=== PATIENT | female | born 1965 | race African-American/Black ===

== ENCOUNTER 2021-05-17 14:50 | Emergency (ER) | payer MEDICAID ==
[~2021-05-17] VITALS: Ht 160 cm; Wt 92.1 kg
[~2021-05-17 14:50] MED LIST: AML5T PO
[2021-05-17] MEDS ORDERED: SODIUM CHLORIDE 0.9% 1,000 ML IV ONE (15:30)
[2021-05-17 16:01] LABS: Basophils # (auto) 0 10 ^3/uL (0-0.2); Eosinophils # (auto) 0 10 ^3/uL (0-0.8); Hemoglobin 13.7 g/dL (12.2-16.2); Lymphocytes # (auto) 0.8 10 ^3/uL (0.4-5.4); Monocytes # (auto) 0.3 10 ^3/uL (0-1.3); Neutrophils # (auto) 2.1 10 ^3/uL (1.6-8.6); Red Cell Distribution Width 13.4 % (11.8-14.3); White Blood Cell 3.3 10^3/uL (4.4-10.8)
[2021-05-17 16:05] LABS: Basophils % (auto) 1.4 % (0.0-2.0); Eosinophils % (auto) 0.7 % (0.0-7.0); Hematocrit 41.8 % (36.0-46.0); Mean Corpuscular Hemoglobin 27.2 pg (28.0-32.0); Mean Corpuscular Hgb Conc. 32.8 g/dL (32.0-36.0); Monocytes % (auto) 9.5 % (0.0-12.0); Neutrophils % (auto) 63.4 % (37.0-80.0); Nucleated Red Blood Cells % 0.2 %; Red Blood Cells 5.04 10^6/uL (4.0-5.20)
[2021-05-17 16:26] LABS: Albumin 3.6 g/dL (3.4-5.0); BUN/Creatinine Ratio 12.4; Calcium 9.6 mg/dL (8.5-10.1); Magnesium 2.5 mg/dL (1.6-2.6); Potassium 3.9 mmol/L (3.5-5.1)
[2021-05-17 16:29] LABS: Bilirubin, Total 0.5 mg/dL (0.2-1.0); Total Protein 9.1 g/dL (6.4-8.2)
[2021-05-17 16:47] LABS: INR 1.06 (0.9-1.15); Partial Thromboplastin Time 29.3 sec (23.6-33.0)
[2021-05-17] MEDS ORDERED: IOHEXOL 350 MG/ML 100ML IJ ONE (18:17)
[2021-05-17 23:10] VITALS: BP 136/101
== END 2021-05-18 02:41 | disposition home or self-care (01) ==
LOC: ER 14:50
DX: R06.02 Shortness of breath (principal); R79.1 Abnormal coagulation profile; I10 Essential (primary) hypertension; Z86.73 Personal history of transient ischemic attack (TIA), and cerebral infarction without residual deficits; Z20.822 Contact with and (suspected) exposure to COVID-19
CPT/HCPCS: 36415; 71046; 71275; 80053; 83735; 83880; 84443; 85025; 85379; 85610; 85730; 87426; 93005

== ENCOUNTER 2021-07-01 01:17 | Emergency (ER) | payer MEDICAID ==
[~2021-07-01] VITALS: Ht 160 cm; Wt 93.0 kg
[2021-07-01 02:20] LABS: Basophils # (auto) 0.1 10 ^3/uL (0-0.2); Basophils % (auto) 1.1 % (0.0-2.0); Eosinophils # (auto) 0.6 10 ^3/uL (0-0.8); Eosinophils % (auto) 11.8 % (0.0-7.0); Hematocrit 42.4 % (36.0-46.0); Lymphocytes # (auto) 1.3 10 ^3/uL (0.4-5.4); Lymphocytes % (auto) 24.3 % (10.0-50.0); Mean Corpuscular Hemoglobin 28.3 pg (28.0-32.0); Mean Corpuscular Hgb Conc. 33.2 g/dL (32.0-36.0); Mean Corpuscular Volume 85.5 fL (80.0-100.0); Monocytes # (auto) 0.4 10 ^3/uL (0-1.3); Monocytes % (auto) 7.6 % (0.0-12.0); Neutrophils # (auto) 2.9 10 ^3/uL (1.6-8.6); Neutrophils % (auto) 55.2 % (37.0-80.0); Nucleated Red Blood Cells % 0.1 %; Red Blood Cells 4.96 10^6/uL (4.0-5.20); Red Cell Distribution Width 14.7 % (11.8-14.3); White Blood Cell 5.3 10^3/uL (4.4-10.8)
[2021-07-01 02:37] LABS: Albumin 3.9 g/dL (3.4-5.0); BUN/Creatinine Ratio 13.8; Calcium 9.6 mg/dL (8.5-10.1)
[2021-07-01 02:40] LABS: Bilirubin, Total 0.3 mg/dL (0.2-1.0); Total Protein 8.5 g/dL (6.4-8.2)
[2021-07-01 07:25] VITALS: BP 132/94
[2021-07-01] MEDS ORDERED: HYDROcodone-ACET 5/325MG TAB PO ONE (07:30)
[2021-07-01] MEDS ORDERED: amLODIPine BESYLATE 5 MG TAB PO ONE (07:30)
[2021-07-01 07:51] LABS: Urine Bacteria FEW /hpf (None Seen); Urine Blood Negative /uL (Negative); Urine Specific Gravity 1.006 (1.001-1.035); Urine WBC 21 /hpf (0 - 5)
== END 2021-07-01 09:12 | disposition home or self-care (01) ==
LOC: ER 01:17
DX: N39.0 Urinary tract infection, site not specified (principal); R51.9 Headache, unspecified; I10 Essential (primary) hypertension; Z88.5 Allergy status to narcotic agent; Z88.6 Allergy status to analgesic agent; Z79.899 Other long term (current) drug therapy; Z86.73 Personal history of transient ischemic attack (TIA), and cerebral infarction without residual deficits; Z98.890 Other specified postprocedural states
CPT/HCPCS: 36415; 70450; 80053; 81001; 85025

== ENCOUNTER 2021-09-29 09:41 | Inpatient (IN) | payer MEDICAID ==
[~2021-09-29] VITALS: Ht 160 cm; Wt 95.6 kg
[2021-09-29 10:50] LABS: Basophils # (auto) 0.1 10 ^3/uL (0-0.2); Basophils % (auto) 1.3 % (0.0-2.0); Eosinophils # (auto) 0.2 10 ^3/uL (0-0.8); Eosinophils % (auto) 3.9 % (0.0-7.0); Hematocrit 43.7 % (36.0-46.0); Hemoglobin 14.2 g/dL (12.2-16.2); Lymphocytes # (auto) 1.3 10 ^3/uL (0.4-5.4); Mean Corpuscular Hgb Conc. 32.5 g/dL (32.0-36.0); Monocytes # (auto) 0.3 10 ^3/uL (0-1.3); Monocytes % (auto) 6.8 % (0.0-12.0); Neutrophils # (auto) 2.9 10 ^3/uL (1.6-8.6); Red Blood Cells 5.08 10^6/uL (4.0-5.20); Red Cell Distribution Width 13.1 % (11.8-14.3); White Blood Cell 4.8 10^3/uL (4.4-10.8)
[2021-09-29 11:06] LABS: Calcium 9.7 mg/dL (8.5-10.1); Potassium 4.5 mmol/L (3.5-5.1)
[2021-09-29 11:14] LABS: BUN/Creatinine Ratio 13.3; Bilirubin, Total 0.2 mg/dL (0.2-1.0); Total Protein 8.4 g/dL (6.4-8.2)
[2021-09-29 14:00] LABS: Urine Bacteria FEW /hpf (None Seen); Urine Blood Negative /uL (Negative); Urine Specific Gravity 1.008 (1.001-1.035); Urine WBC 12 /hpf (0 - 5)
[2021-09-29] MEDS ORDERED: NITROGLYCERIN 0.4 MG SL TAB SL ONE (18:15)
[2021-09-30] MEDS ORDERED: DOCUSATE SOD 100 MG CAP PO PRN (03:45)
[2021-09-30] MEDS ORDERED: ACETAMINOPHEN 325 MG TAB PO PRN (03:45)
[2021-09-30] MEDS ORDERED: MORPHINE SULFATE 4 MG/ML SYR/VIAL IV PRN (03:45)
[2021-09-30] MEDS ORDERED: ONDANSETRON HCL 4 MG/2 ML VIAL IV PRN (03:45)
[2021-09-30] MEDS ORDERED: HYDROcodone-ACET 5/325MG TAB PO PRN (03:45)
[2021-09-30] MEDS ORDERED: MORPHINE SULFATE INJECTION 2 MG/ML SYRG IV PRN (04:45)
[2021-09-30] MEDS ORDERED: NITROGLYCERIN 0.4 MG SL TAB SL PRN (04:45)
[2021-09-30] MEDS: METOPROLOL TARTRATE 25 MG TAB PO SCH ×2 (10:00→22:38)
[2021-09-30] MEDS: FAMOTIDINE (10MG/ML) 2ML VL IV SCH (10:49)
[2021-09-30] MEDS: CLOPIDOGREL BISULFATE 75 MG TAB PO SCH (10:50)
[2021-09-30 11:31] LABS: Basophils # (auto) 0.1 10 ^3/uL (0-0.2); Basophils % (auto) 1.3 % (0.0-2.0); Eosinophils # (auto) 0.2 10 ^3/uL (0-0.8); Hematocrit 42.6 % (36.0-46.0); Hemoglobin 13.9 g/dL (12.2-16.2); Lymphocytes # (auto) 1.3 10 ^3/uL (0.4-5.4); Lymphocytes % (auto) 24.8 % (10.0-50.0); Mean Corpuscular Hgb Conc. 32.7 g/dL (32.0-36.0); Mean Corpuscular Volume 85.5 fL (80.0-100.0); Monocytes # (auto) 0.6 10 ^3/uL (0-1.3); Neutrophils # (auto) 3.1 10 ^3/uL (1.6-8.6); Neutrophils % (auto) 59.9 % (37.0-80.0); Nucleated Red Blood Cells % 0.1 %; Red Blood Cells 4.98 10^6/uL (4.0-5.20); Red Cell Distribution Width 13.1 % (11.8-14.3); White Blood Cell 5.1 10^3/uL (4.4-10.8)
[2021-09-30 11:46] LABS: Albumin 3.8 g/dL (3.4-5.0); Calcium 9.8 mg/dL (8.5-10.1); Potassium 3.9 mmol/L (3.5-5.1)
[2021-09-30 11:51] LABS: BUN/Creatinine Ratio 14.7; Bilirubin, Total 0.3 mg/dL (0.2-1.0); Total Protein 8.2 g/dL (6.4-8.2)
[2021-09-30 19:10] LABS: Cholesterol 192 mg/dL (< 200); HDL Cholesterol 55 mg/dL (40-59); LDL Cholesterol 119 mg/dL (< 100); Triglycerides 56 mg/dL (< 150)
[2021-09-30] MEDS: ATORVASTATIN 20 MG TAB PO SCH (22:38)
[2021-09-30 23:28] VITALS: BP 127/85
[2021-09-30] MEDS ORDERED: PRAM0.12 PO (23:36)
[2021-10-01 05:00] VITALS: BP 109/71
[2021-10-01 05:47] LABS: Basophils # (auto) 0.1 10 ^3/uL (0-0.2); Basophils % (auto) 1.4 % (0.0-2.0); Eosinophils # (auto) 0.3 10 ^3/uL (0-0.8); Eosinophils % (auto) 6.7 % (0.0-7.0); Hematocrit 41.5 % (36.0-46.0); Hemoglobin 13.4 g/dL (12.2-16.2); Lymphocytes # (auto) 1.8 10 ^3/uL (0.4-5.4); Lymphocytes % (auto) 41.1 % (10.0-50.0); Mean Corpuscular Hemoglobin 27.8 pg (28.0-32.0); Mean Corpuscular Hgb Conc. 32.4 g/dL (32.0-36.0); Monocytes # (auto) 0.4 10 ^3/uL (0-1.3); Monocytes % (auto) 9.6 % (0.0-12.0); Neutrophils # (auto) 1.8 10 ^3/uL (1.6-8.6); Neutrophils % (auto) 41.2 % (37.0-80.0); Nucleated Red Blood Cells % 0.3 %; Red Blood Cells 4.83 10^6/uL (4.0-5.20); Red Cell Distribution Width 12.9 % (11.8-14.3); White Blood Cell 4.5 10^3/uL (4.4-10.8)
[2021-10-01 06:04] LABS: Albumin 3.3 g/dL (3.4-5.0); Calcium 9.4 mg/dL (8.5-10.1); Potassium 4.3 mmol/L (3.5-5.1)
[2021-10-01 06:06] LABS: BUN/Creatinine Ratio 16.3
[2021-10-01 06:08] LABS: Bilirubin, Total 0.4 mg/dL (0.2-1.0); Total Protein 7.6 g/dL (6.4-8.2)
[2021-10-01 08:00] VITALS: BP 117/85
[2021-10-01 09:00] VITALS: BP 117/85
[2021-10-01] MEDS: CLOPIDOGREL BISULFATE 75 MG TAB PO SCH (11:21)
[2021-10-01] MEDS: amLODIPine BESYLATE 5 MG TAB PO SCH ×2 (11:21→22:04)
[2021-10-01] MEDS: FAMOTIDINE (10MG/ML) 2ML VL IV SCH (11:22)
[2021-10-01] MEDS: METOPROLOL TARTRATE 25 MG TAB PO SCH ×2 (11:22→22:02)
[2021-10-01 13:00] VITALS: BP 126/88
[2021-10-01 16:41] VITALS: BP 106/74
[2021-10-01 22:00] VITALS: BP 108/73
[2021-10-01] MEDS: PRAMIPEXOLE DIHYDROCHLORIDE MO 0.25 MG TAB PO SCH (22:03)
[2021-10-01] MEDS: ATORVASTATIN 20 MG TAB PO SCH (22:03)
[2021-10-02] VITALS (7 sets, daily range): BP systolic 107–134; BP diastolic 73–91
[2021-10-02] MEDS: amLODIPine BESYLATE 5 MG TAB PO SCH ×2 (09:28→22:16)
[2021-10-02] MEDS: CLOPIDOGREL BISULFATE 75 MG TAB PO SCH (09:29)
[2021-10-02] MEDS: FAMOTIDINE (10MG/ML) 2ML VL IV SCH (09:29)
[2021-10-02] MEDS: METOPROLOL TARTRATE 25 MG TAB PO SCH ×2 (09:29→22:15)
[2021-10-02] MEDS ORDERED: ADENOSINE 80 MG in GIVE UN-DILUTED 0 ML IV STA (12:56)
[2021-10-02] MEDS: ATORVASTATIN 20 MG TAB PO SCH (22:15)
[2021-10-02] MEDS: PRAMIPEXOLE DIHYDROCHLORIDE MO 0.25 MG TAB PO SCH (22:15)
[2021-10-03] VITALS: BP 116/85
[2021-10-03 07:45] VITALS: BP 97/62
[2021-10-03 09:00] VITALS: BP 97/62
[2021-10-03] MEDS: METOPROLOL TARTRATE 25 MG TAB PO SCH (10:00)
[2021-10-03] MEDS: amLODIPine BESYLATE 5 MG TAB PO SCH (10:00)
[2021-10-03] MEDS: CLOPIDOGREL BISULFATE 75 MG TAB PO SCH (10:11)
[2021-10-03] MEDS: FAMOTIDINE (10MG/ML) 2ML VL IV SCH (10:11)
[2021-10-03 13:00] VITALS: BP 115/68
[2021-10-03] MEDS ORDERED: CEPH-509 PO (13:39)
[2021-10-03] MEDS ORDERED: AMOX500C2 PO (14:19)
[2021-10-03 14:29] VITALS: BP 115/68
== END 2021-10-03 18:05 | disposition home or self-care (01) | DRG 203 ==
LOC: ER 09:41 → TELE 09-30 04:43 → TELE-CENTR 09-30 21:50
PROVIDERS: ADMIT Nurse Practitioner Family; ATTEND Internal Medicine
DX: R07.9 Chest pain, unspecified (principal); E66.9 Obesity, unspecified; F41.9 Anxiety disorder, unspecified; I10 Essential (primary) hypertension; R51.9 Headache, unspecified; E78.5 Hyperlipidemia, unspecified; Z20.822 Contact with and (suspected) exposure to COVID-19; Z82.3 Family history of stroke; Z82.49 Family history of ischemic heart disease and other diseases of the circulatory system; Z82.62 Family history of osteoporosis; Z86.73 Personal history of transient ischemic attack (TIA), and cerebral infarction without residual deficits; Z88.6 Allergy status to analgesic agent; Z88.5 Allergy status to narcotic agent; Z68.37 Body mass index [BMI] 37.0-37.9, adult
CPT/HCPCS: 36415; 70450; 71046; 78452; 80053; 80061; 81001; 84484; 85025; 87426; 93005; 93017; 93306; 96374; G0378; J0153; J3490

== ENCOUNTER 2022-09-29 12:23 | Emergency (ER) | payer MEDICAID ==
[~2022-09-29] VITALS: Ht 160 cm; Wt 97.5 kg
[~2022-09-29 12:23] MED LIST changes: +AMOX500C2 PO; +PRAM0.12 PO
[2022-09-29] MEDS ORDERED: cloNIDine HCL 0.1 MG TAB PO ONE (12:45)
[2022-09-29 13:24] LABS: Basophils # (auto) 0 10 ^3/uL (0-0.2); Eosinophils # (auto) 0.1 10 ^3/uL (0-0.8); Eosinophils % (auto) 2.7 % (0.0-7.0); Hematocrit 41.4 % (36.0-46.0); Hemoglobin 13.7 g/dL (12.2-16.2); Lymphocytes # (auto) 1.3 10 ^3/uL (0.4-5.4); Lymphocytes % (auto) 27.6 % (10.0-50.0); Mean Corpuscular Hemoglobin 28.7 pg (28.0-32.0); Mean Corpuscular Hgb Conc. 33.1 g/dL (32.0-36.0); Mean Corpuscular Volume 86.7 fL (80.0-100.0); Monocytes # (auto) 0.4 10 ^3/uL (0-1.3); Monocytes % (auto) 7.2 % (0.0-12.0); Neutrophils % (auto) 61.5 % (37.0-80.0); Nucleated Red Blood Cells % 0.5 %; Red Blood Cells 4.77 10^6/uL (4.0-5.20); Red Cell Distribution Width 14.1 % (11.8-14.3); White Blood Cell 4.9 10^3/uL (4.4-10.8)
[2022-09-29 13:28] LABS: Albumin 3.8 g/dL (3.4-5.0); BUN/Creatinine Ratio 14.7; Calcium 9.5 mg/dL (8.5-10.1); Potassium 5.2 mmol/L (3.5-5.1)
[2022-09-29 13:31] LABS: Bilirubin, Total 0.3 mg/dL (0.2-1.0); Total Protein 7.9 g/dL (6.4-8.2)
[2022-09-29] MEDS ORDERED: SODIUM BICARBONATE 8.4% INJ 50ML SYRINGE IV ONE (14:15)
[2022-09-29] MEDS ORDERED: FUROSEMIDE 20 MG/2 ML VIAL IV ONE (14:15)
[2022-09-29] MEDS ORDERED: CALCIUM GLUC 1,000mg/50ml-NS 50 ML IV ONE (14:15)
[2022-09-29] MEDS ORDERED: ALBUTEROL SULF 2.5 MG/0.5ML(0.5%) NEB SOLN NEB ONE (14:15)
[2022-09-29] MEDS ORDERED: ALBUTEROL MEDNEB 2.5 mg/3ml NEB ONE (14:25)
[2022-09-29 15:40] LABS: Urine Bacteria NONE SEEN /hpf (None Seen); Urine Blood Negative /uL (Negative); Urine Specific Gravity 1.006 (1.001-1.035); Urine WBC 2 /hpf (0 - 5)
[2022-09-29 16:00] VITALS: BP 120/56
[2022-09-29] MEDS ORDERED: NITR-87 PO (18:43)
[2022-09-29] MEDS ORDERED: CEPH-510 PO (19:09)
== END 2022-09-29 20:41 | disposition home or self-care (01) ==
LOC: ER 12:23
DX: I10 Essential (primary) hypertension (principal); E87.5 Hyperkalemia; N39.0 Urinary tract infection, site not specified; R51.9 Headache, unspecified
CPT/HCPCS: 36415; 70450; 80053; 81001; 84132; 84484; 85025; 93005; 94640; 96365; 96375; 99285; J0610; J1940

== ENCOUNTER 2023-09-25 04:41 | Emergency (ER) | payer MEDICAID ==
[~2023-09-25] VITALS: Ht 160 cm; Wt 93.4 kg
[~2023-09-25 04:41] MED LIST changes: +CEPH-510 PO; +NITR-87 PO
[2023-09-25 08:05] VITALS: TEMP 98.7
[2023-09-25] MEDS ORDERED: cloNIDine HCL 0.1 MG TAB PO ONE (08:15)
[2023-09-25] MEDS ORDERED: OLME1TAB73 PO (08:57)
[2023-09-25] MEDS ORDERED: ACETAMINOPHEN 500 MG TAB PO ONE (09:30)
[2023-09-25 10:44] VITALS: BP 117/72; PULSE 71; RESP 18; O2SAT 98
== END 2023-09-25 10:45 | disposition home or self-care (01) ==
LOC: ER 04:41
DX: T75.4XXA Electrocution, initial encounter (principal); I10 Essential (primary) hypertension; M54.2 Cervicalgia; Z86.2 Personal history of diseases of the blood and blood-forming organs and certain disorders involving the immune mechanism; Z86.73 Personal history of transient ischemic attack (TIA), and cerebral infarction without residual deficits; Z79.2 Long term (current) use of antibiotics; Z79.899 Other long term (current) drug therapy; Z88.6 Allergy status to analgesic agent; Z88.5 Allergy status to narcotic agent; Z88.8 Allergy status to other drugs, medicaments and biological substances; W86.8XXA Exposure to other electric current, initial encounter; Y93.89 Activity, other specified; Y92.89 Other specified places as the place of occurrence of the external cause; Y99.8 Other external cause status

== ENCOUNTER 2024-01-10 06:14 | Emergency (ER) | payer MEDICAID ==
[~2024-01-10] VITALS: Ht 160 cm; Wt 93.2 kg
[~2024-01-10 06:14] MED LIST changes: +OLME40TA76 PO
[2024-01-10 07:05] LABS: Basophils # (auto) 0.1 10 ^3/uL (0-0.2); Basophils % (auto) 1.3 % (0.0-2.0); Eosinophils # (auto) 0.2 10 ^3/uL (0-0.8); Eosinophils % (auto) 4.7 % (0.0-7.0); Hematocrit 40.2 % (36.0-46.0); Hemoglobin 13.1 g/dL (12.2-16.2); Lymphocytes # (auto) 1.7 10 ^3/uL (0.4-5.4); Lymphocytes % (auto) 35.4 % (10.0-50.0); Mean Corpuscular Hemoglobin 28.3 pg (28.0-32.0); Mean Corpuscular Hgb Conc. 32.5 g/dL (32.0-36.0); Monocytes # (auto) 0.4 10 ^3/uL (0-1.3); Monocytes % (auto) 8.8 % (0.0-12.0); Neutrophils # (auto) 2.5 10 ^3/uL (1.6-8.6); Neutrophils % (auto) 49.8 % (37.0-80.0); Nucleated Red Blood Cells % 0.1 %; Red Blood Cells 4.62 10^6/uL (4.0-5.20); Red Cell Distribution Width 13.6 % (11.8-14.3); White Blood Cell 4.9 10^3/uL (4.4-10.8)
[2024-01-10 07:12] LABS: Alanine Aminotransferase 25 U/L (7-40); Albumin 4.4 g/dL (3.2-4.8); Alkaline Phosphatase 59 U/L (46-116); Anion Gap 6 (5-15); Aspartate Aminotransferase 27 U/L (13-40); Blood Urea Nitrogen 9 mg/dL (9-23); Calcium 9.9 mg/dL (8.7-10.4); Carbon Dioxide 27 mmol/L (20-30); Chloride 107 mmol/L (98-107); Glucose 118 mg/dL (74-106); Potassium 4.1 mmol/L (3.5-5.1); Sodium 140 mmol/L (136-145)
[2024-01-10 07:13] LABS: Bilirubin, Total 0.5 mg/dL (0.2-1.0); Total Protein 7.6 g/dL (5.7-8.2)
[2024-01-10 07:17] LABS: BUN/Creatinine Ratio 8.7 (10.0-20.0)
[2024-01-10 07:29] LABS: INR 1.03 (0.9-1.15); Partial Thromboplastin Time 28.1 SEC (24.5-34.5); Prothrombin Time 10.9 sec (9.3-11.8)
[2024-01-10] MEDS: hydrALAZINE HCL 25 MG TAB PO ONE (07:44)
[2024-01-10 08:15] VITALS: BP 134/69; PULSE 63; RESP 18; TEMP 98.7; O2SAT 100
[2024-01-10] MEDS ORDERED: HYDR25TA87 PO (19:26)
== END 2024-01-10 08:40 | disposition home or self-care (01) ==
LOC: ER 06:14
DX: I16.0 Hypertensive urgency (principal); I10 Essential (primary) hypertension; R51.9 Headache, unspecified; Z86.73 Personal history of transient ischemic attack (TIA), and cerebral infarction without residual deficits
CPT/HCPCS: 36415; 70450; 71045; 80053; 83735; 83880; 84484; 85025; 85610; 85730; 93005

== ENCOUNTER 2024-01-10 17:08 | Emergency (ER) | payer MEDICAID ==
[~2024-01-10] VITALS: Ht 160 cm; Wt 94.1 kg
[2024-01-10] MEDS ORDERED: HYDR25TA87 PO (19:26)
[2024-01-10 19:44] VITALS: BP 175/91; PULSE 55; RESP 18; TEMP 98.7; O2SAT 98
== END 2024-01-10 19:45 | disposition home or self-care (01) ==
LOC: ER 17:08
DX: I16.0 Hypertensive urgency (principal); Z86.73 Personal history of transient ischemic attack (TIA), and cerebral infarction without residual deficits; Z86.2 Personal history of diseases of the blood and blood-forming organs and certain disorders involving the immune mechanism; Z79.2 Long term (current) use of antibiotics; Z79.899 Other long term (current) drug therapy; Z88.6 Allergy status to analgesic agent; Z88.5 Allergy status to narcotic agent; Z88.8 Allergy status to other drugs, medicaments and biological substances